=== PATIENT | male | born 1960 | race Caucasian/White ===

== ENCOUNTER 2019-04-29 13:10 | Observation (INO) | payer MEDICAID ==
[~2019-04-29] VITALS: Ht 185.4 cm; Wt 99.5 kg
[~2019-04-29 13:10] MED LIST: HYDR-4353 PO; POLY119P2 PO
--- NOTE | 2019-04-29 13:56 | NUR ---
PATIENT AMBULATORY TO [facility] WITH REQUEST FOR US OR VASCULAR STUDY ON LEFT LEG. STATES HE WENT TO [facility] ON MONDAY AND WAS TOLD THAT HE MAY HAVE A BLOOD CLOT IN HIS LEFT LEG, BUT WERE UNABLE TO PERFORM US OR VASCULAR SERVICES THAT DAY. SWELLING TO MEDIAL ANKLE NOTED AND LOWER LEFT LEG. STATES SWELLING PERSISTS AND GETS LESS WHEN HE ELEVATES THE EXTREM. PRESCRIPTION FOR ELIQUIS HAD BEEN GIVEN TO PATIENT ON MONDAY, BUT WAS GOING TO COST $500 AND PATIENT REFUSED TO GET IT FILLED.
[2019-04-29] MEDS ORDERED: heparin 25,000 UNIT/250ml bag 250 ML IV SCH (14:29)
[2019-04-29] MEDS ORDERED: heparin 10,000 units/1 ML INJ IV ONE ×2 (14:30→16:25)
[2019-04-29 14:45] LABS: BASOPHILS # (AUTO) 0.1 X10'3 (0-0.2); BASOPHILS % (AUTO) 1.1 % (0-1); EOSINOPHILS # (AUTO) 0.4 X10'3 (0-0.9); EOSINOPHILS % (AUTO) 4.4 % (0-6); HEMOGLOBIN 14.3 g/dl (14.0-17.9); LYMPHOCYTES # (AUTO) 2.3 X10'3 (1.1-4.8); LYMPHOCYTES % (AUTO) 23.4 % (21-51); MEAN CORPUSCULAR HEMOGLOBIN 29.3 PG (27.0-31.0); MEAN CORPUSCULAR HGB CONC 33.2 g/dL (33.0-36.5); MEAN CORPUSCULAR VOLUME 88.2 FL (78-98); MEAN PLATELET VOLUME 6.5 FL (7.4-10.4); MONOCYTES # (AUTO) 0.6 X10'3 (0-0.9); MONOCYTES % (AUTO) 6.1 % (2-12); NEUTROPHILS # (AUTO) 6.4 X10'3 (1.8-7.7); PLATELET COUNT 342 X10'3 (140-440); RED BLOOD COUNT 4.88 X10'6 (4.70-6.10); RED CELL DISTRIBUTION WIDTH 13.3 % (11.5-14.5); WHITE BLOOD COUNT 9.8 X10'3 (4.5-11.0)
--- NOTE | 2019-04-29 14:51 | NUR ---
JOSE ANGEL ORDERED 10,000U HEPARIN BOLUS NOT WT BASED DOSE
[2019-04-29 14:59] LABS: ALANINE AMINOTRANSFERASE 31 U/L (12-78); ALBUMIN 3.5 G/DL (3.4-5.0); ALBUMIN/GLOBULIN RATIO 0.9 (1.1-1.5); ALKALINE PHOSPHATASE 73 IU/L (46-116); ANION GAP 11 (8-16); ASPARTATE AMINO TRANSFERASE 17 U/L (10-37); BILIRUBIN,TOTAL 0.3 MG/DL (0.1-1.0); BLOOD UREA NITROGEN 9 MG/DL (7-18); BUN/CREATININE RATIO 9.5 (5.4-32.0); CALCIUM 9.1 MG/DL (8.5-10.1); CHLORIDE 106 MMOL/L (99-107); CREATININE 0.95 MG/DL (0.60-1.10); GLUCOSE 89 MG/DL (70-104); POTASSIUM 3.9 MMOL/L (3.5-5.1); SODIUM 142 MMOL/L (135-145); TOTAL CARBON DIOXIDE 24.7 MMOL/L (24-32); TOTAL PROTEIN 7.6 G/DL (6.4-8.2); eGFR 82 ML/MIN
--- NOTE | 2019-04-29 15:06 | NUR ---
PT TRANSFERRED TO ROOM 2
--- NOTE | 2019-04-29 15:13 | NUR ---
DISCUSSED WITH PATRI[place] [address] UNITS AND THEN WEIGHT BASED HEPARIN GTT FOR DVT. PER PA PATIENT HAS LARGE CLOT FROM LEFT THIGH TO FOOT. HEPARIN GTT AT 1700 UNITS/HR INFUSING TO LEFT FOREARM 18 GAUGE PIV. ALL BELONGINGS TRANSFERED TO ROOM 2 WITH PATIENT. BEDSIDE REPORT TO LEORA ASHLEY
[2019-04-29] MEDS ORDERED: LISI40TA4 PO (15:23)
[2019-04-29 15:39] LABS: D-DIMER 2.25 MG/L FEU (0-0.50)
[2019-04-29] MEDS ORDERED: magnesium hydroxide 30ml (MOM) UD suspension PO PRN (16:25)
[2019-04-29] MEDS ORDERED: mag hydrox/Alum hydrox/simeth 30ml oral suspension PO PRN (16:25)
[2019-04-29] MEDS ORDERED: potassium CL 10mEq/100ml bag 100 ML IV PRN ×2 (16:25)
[2019-04-29] MEDS ORDERED: potassium Cl 20 mEq SR tablet PO PRN ×2 (16:25)
[2019-04-29] MEDS ORDERED: magnesium Cl slow-release 64mg tablet PO PRN (16:25)
[2019-04-29] MEDS ORDERED: heparin 10,000 units/1 ML INJ IV PRN (16:25)
[2019-04-29] MEDS ORDERED: magnesium 2GM in 50ml NS 50 ML IV PRN (16:25)
[2019-04-29] MEDS ORDERED: magnesium 4gm in 100ml NS 100 ML IV PRN (16:25)
[2019-04-29] MEDS ORDERED: acetaminophen 325mg tablet PO PRN (16:25)
[2019-04-29] MEDS ORDERED: ondansetron/PF 4mg/2ml inj IV PRN (16:25)
--- NOTE | 2019-04-29 17:32 | NUR ---
RECEIVED REPORT AND PATIENT FROM ER. PLACED PATIENT INTO ROOM 308. DENIES PAIN SOB, AND OR, NAUSEA AT THIS TIME . PLACED ON HEART MONITOR WHICH SHOWS SR, RATE 83. HEPARIN GTT INFUSING AT 1700 UNITS PER HOUR. HOB UP CALL LIGHT IN REACH. Addendum: 04/29/19 at 1747 by Serena Nielson RN Amended: Links added.
[2019-04-29 17:42] VITALS: BP 143/81
[2019-04-29 17:51] LABS: MAGNESIUM 2.2 MG/DL (1.5-2.4)
[2019-04-29 18:00] VITALS: BP 138/82
[2019-04-29] MEDS: heparin 25,000 UNIT/250ml bag 250 ML IV SCH (18:11)
--- NOTE | 2019-04-29 18:52 | NUR ---
Patient in room MED 308. I have received report from RADHA ASHLEY and had the opportunity to ask questions and assume patient care.
[2019-04-29 22:00] VITALS: BP 134/81
[2019-04-30 02:59] LABS: BASOPHILS # (AUTO) 0.1 X10'3 (0-0.2); BASOPHILS % (AUTO) 1.1 % (0-1); EOSINOPHILS # (AUTO) 0.4 X10'3 (0-0.9); EOSINOPHILS % (AUTO) 4.5 % (0-6); HEMATOCRIT 41.6 % (42.0-52.0); LYMPHOCYTES # (AUTO) 2.6 X10'3 (1.1-4.8); MEAN CORPUSCULAR HEMOGLOBIN 29.9 PG (27.0-31.0); MEAN CORPUSCULAR HGB CONC 33.7 g/dL (33.0-36.5); MEAN CORPUSCULAR VOLUME 88.7 FL (78-98); MEAN PLATELET VOLUME 6.5 FL (7.4-10.4); MONOCYTES # (AUTO) 0.6 X10'3 (0-0.9); MONOCYTES % (AUTO) 6.4 % (2-12); NEUTROPHILS # (AUTO) 6.2 X10'3 (1.8-7.7); PLATELET COUNT 322 X10'3 (140-440); RED BLOOD COUNT 4.69 X10'6 (4.70-6.10); RED CELL DISTRIBUTION WIDTH 13.5 % (11.5-14.5)
[2019-04-30 03:15] LABS: ALANINE AMINOTRANSFERASE 29 U/L (12-78); ALBUMIN 3.3 G/DL (3.4-5.0); ALBUMIN/GLOBULIN RATIO 0.9 (1.1-1.5); ALKALINE PHOSPHATASE 66 IU/L (46-116); ANION GAP 11 (8-16); ASPARTATE AMINO TRANSFERASE 19 U/L (10-37); BILIRUBIN,TOTAL 0.4 MG/DL (0.1-1.0); BLOOD UREA NITROGEN 11 MG/DL (7-18); BUN/CREATININE RATIO 11.3 (5.4-32.0); CALCIUM 8.8 MG/DL (8.5-10.1); CHLORIDE 107 MMOL/L (99-107); CREATININE 0.97 MG/DL (0.60-1.10); GLUCOSE 95 MG/DL (70-104); POTASSIUM 3.7 MMOL/L (3.5-5.1); SODIUM 142 MMOL/L (135-145); TOTAL CARBON DIOXIDE 23.9 MMOL/L (24-32); eGFR 80 ML/MIN
[2019-04-30 03:17] LABS: MAGNESIUM 2.1 MG/DL (1.5-2.4)
[2019-04-30] MEDS: heparin 25,000 UNIT/250ml bag 250 ML IV SCH ×2 (03:34→05:38)
--- NOTE | 2019-04-30 06:25 | NUR ---
Orienteer documentation: I have reviewed and agree with all interventions, assessments performed and documented by GABI Altamirano. Orienteer Medication Administration: For this medication-pass time frame, medication were reviewed, dispensed, administered and documented per hospital policy by GABI Altamirano.
--- NOTE | 2019-04-30 06:30 | NUR ---
Problems reprioritized. Patient report given, questions answered & plan of care reviewed with Hoang ASHLEY.
[2019-04-30 06:42] VITALS: BP 119/74
[2019-04-30 07:45] VITALS: BP 124/76
[2019-04-30] MEDS ORDERED: K and/or MAG REPLACEMENT MC SCH (08:00)
[2019-04-30] MEDS ORDERED: lisinopril 20mg tablet PO SCH (08:00)
--- NOTE | 2019-04-30 08:01 | NUR ---
I have received report from Evelia ASHLEY and Mary ASHLEY and had the opportunity to ask questions and assume patient care.
[2019-04-30] MEDS ORDERED: rivaroxaban 15mg tablet PO ONE (09:10)
[2019-04-30] MEDS ORDERED: RIVA15TA PO (09:18)
[2019-04-30] MEDS ORDERED: RIVA20TA PO (09:18)
[2019-04-30] MEDS ORDERED: LISI-644 PO (10:45)
[2019-04-30 11:33] VITALS: BP 123/85
--- NOTE | 2019-04-30 11:53 | NUR ---
pt discharge education provide, pt verbalized understanding. IV's removed Dressing dry intact, no sign of bleeding noted. pt ambulated out of unit with all belong, stable , no distress noted. prescriptions called in.
--- NOTE | 2019-04-30 11:53 | NUR ---
Orienteer documentation: I have reviewed and agree with all interventions, assessments performed and documented by Julian ASHLEY.
== END 2019-04-30 11:43 | disposition home or self-care (01) ==
LOC: ER 13:10 → MED 3N 17:12 → CMPBEDREQ 19:34
PROVIDERS: ADMIT Family Medicine; ATTEND Family Medicine
DX: I82.402 Acute embolism and thrombosis of unspecified deep veins of left lower extremity (principal); I10 Essential (primary) hypertension; R79.89 Other specified abnormal findings of blood chemistry; E78.00 Pure hypercholesterolemia, unspecified; K43.9 Ventral hernia without obstruction or gangrene; Z79.01 Long term (current) use of anticoagulants; Z82.49 Family history of ischemic heart disease and other diseases of the circulatory system
CPT/HCPCS: 36415; 71045; 80053; 83605; 83735; 83880; 84145; 84484; 85025; 85379; 85610; 85730; 87040; 87081; 93005; 93971; 96365; 96366; 96376; 99284; G0378; J1644

== ENCOUNTER 2020-07-27 11:07 | Emergency (ER) | payer MEDICAID ==
[~2020-07-27] VITALS: Ht 185.4 cm; Wt 100.0 kg
[~2020-07-27 11:07] MED LIST changes: -HYDR-4353 PO; +LISI-644 PO; -POLY119P2 PO; +RIVA15TA PO; +RIVA20TA PO
[2020-07-27 11:27] VITALS: BP 150/95
[2020-07-27 12:13] LABS: BASOPHILS % (AUTO) 0.5 % (0-1); EOSINOPHILS # (AUTO) 0.4 X10'3 (0-0.9); HEMATOCRIT 42.9 % (42.0-52.0); HEMOGLOBIN 14.5 g/dl (14.0-17.9); LYMPHOCYTES # (AUTO) 1.9 X10'3 (1.1-4.8); LYMPHOCYTES % (AUTO) 24.1 % (21-51); MEAN CORPUSCULAR HEMOGLOBIN 30.3 PG (27.0-31.0); MEAN CORPUSCULAR HGB CONC 33.9 g/dL (33.0-36.5); MEAN CORPUSCULAR VOLUME 89.5 FL (78-98); MEAN PLATELET VOLUME 6.6 FL (7.4-10.4); MONOCYTES # (AUTO) 0.5 X10'3 (0-0.9); MONOCYTES % (AUTO) 6.1 % (2-12); NEUTROPHILS # (AUTO) 5.1 X10'3 (1.8-7.7); NEUTROPHILS % (AUTO) 64.3 % (42-75); PLATELET COUNT 341 X10'3 (140-440); RED BLOOD COUNT 4.79 X10'6 (4.70-6.10); RED CELL DISTRIBUTION WIDTH 13.5 % (11.5-14.5)
[2020-07-27 12:25] LABS: ALANINE AMINOTRANSFERASE 31 U/L (12-78); ALBUMIN 3.7 G/DL (3.4-5.0); ALBUMIN/GLOBULIN RATIO 0.9 (1.1-1.5); ALKALINE PHOSPHATASE 70 IU/L (46-116); ANION GAP 7 (8-16); ASPARTATE AMINO TRANSFERASE 14 U/L (10-37); BILIRUBIN,TOTAL 0.2 MG/DL (0.1-1.0); BLOOD UREA NITROGEN 7 MG/DL (7-18); BUN/CREATININE RATIO 7.4 (5.4-32.0); CALCIUM 8.8 MG/DL (8.5-10.1); CHLORIDE 107 MMOL/L (99-107); CREATININE 0.94 MG/DL (0.60-1.10); GLUCOSE 95 MG/DL (70-104); SODIUM 143 MMOL/L (135-145); TOTAL CARBON DIOXIDE 28.6 MMOL/L (24-32); TOTAL PROTEIN 7.6 G/DL (6.4-8.2); eGFR 83 ML/MIN
[2020-07-27] MEDS ORDERED: ALBU8HFA PO (13:33)
== END 2020-07-27 13:52 | disposition home or self-care (01) ==
LOC: ER 11:08
DX: J06.9 Acute upper respiratory infection, unspecified (principal); Z20.828 Contact with and (suspected) exposure to other viral communicable diseases; I10 Essential (primary) hypertension; Z88.8 Allergy status to other drugs, medicaments and biological substances; Z79.899 Other long term (current) drug therapy
CPT/HCPCS: 36415; 71045; 80053; 83880; 84484; 85025; 87635; 93005; 99285

== ENCOUNTER 2022-02-20 17:45 | Emergency (ER) | payer BC, MEDICAID ==
[~2022-02-20] VITALS: Ht 185.4 cm; Wt 102.3 kg
[2022-02-20] MEDS ORDERED: acetaminophen 325mg tablet PO ONE (18:50)
[2022-02-20 19:52] VITALS: BP 136/92
== END 2022-02-20 19:54 | disposition home or self-care (01) ==
LOC: ER 17:47
DX: S00.83XA Contusion of other part of head, initial encounter (principal); I10 Essential (primary) hypertension; Z79.899 Other long term (current) drug therapy; Z88.8 Allergy status to other drugs, medicaments and biological substances; Y04.0XXA Assault by unarmed brawl or fight, initial encounter; Y93.89 Activity, other specified; Y92.89 Other specified places as the place of occurrence of the external cause; Y99.8 Other external cause status
CPT/HCPCS: 70450; 72125; 99284

== ENCOUNTER 2023-11-12 12:09 | Emergency (ER) | payer BC, MEDICAID ==
[~2023-11-12] VITALS: Ht 188 cm; Wt 106.2 kg
[2023-11-12 12:16] VITALS: BP 152/90; PULSE 90; RESP 16; TEMP 98; O2SAT 97
== END 2023-11-12 16:00 | disposition left against medical advice (07) ==
LOC: ER 12:09
DX: M79.674 Pain in right toe(s) (principal); Z53.21 Procedure and treatment not carried out due to patient leaving prior to being seen by health care provider
CPT/HCPCS: 73630; 99281